=== PATIENT | female | born 1995 | race Caucasian/White ===

== ENCOUNTER 2020-09-15 19:25 | Emergency (ER) | payer BC, OTHER ==
[~2020-09-15] VITALS: Ht 162.6 cm; Wt 110.2 kg
[2020-09-15 20:01] VITALS: BP 124/62
--- NOTE | 2020-09-15 20:04 | NUR ---
provided urine, triaged and waiting in lobby.
--- NOTE | 2020-09-15 20:45 | NUR ---
To ED bed 12
--- NOTE | 2020-09-15 20:47 | NUR ---
25 year old female coming in for c/o pelvic pain x 3-4 days. pt states negative covid test x 1 month. reports pain as constant and aching 6/10 pain. states just found out she was last . LMP 08/15/20. G3 T2 L2. denies n/v/d. denies bloody discharge. denies sob/chest pain. a/o x 4. Respirations even and unlabored. RRR. abdomen soft and nontender. no rebound tenderness. denies dysuria. pmhx: denies nkda
[2020-09-15] MEDS ORDERED: ACETAMINOPHEN EXTRA STRENGTH 500 MG TAB PO ONE (21:30)
[2020-09-15] MEDS ORDERED: ONDANSETRON 4 MG ODT PO ONE (21:30)
--- NOTE | 2020-09-15 21:37 | NUR ---
ultrasound at bedside.
--- NOTE | 2020-09-15 21:40 | NUR ---
urine sample collected and handed to lab
--- NOTE | 2020-09-15 21:40 | NUR ---
Per Cathleen, [employer] - delay in drawing Pt labs due to Ultrasound at bedside at this time.
[2020-09-15 21:53] LABS: APPEARANCE,URINE CLOUDY (CLEAR); BILIRUBIN,URINE NEGATIVE (NEGATIVE); BLOOD, URINE NEGATIVE (NEGATIVE); COLOR,URINE YELLOW (YELLOW); LEUKOCYTE ESTERASE ,URINE NEGATIVE (NEGATIVE); NITRITE, URINE POSITIVE (NEGATIVE); UGLUCOSE NEGATIVE (NEGATIVE)
[2020-09-15 22:14] LABS: BASOPHILS # (AUTO) 0.1 K/uL (0.00-0.22); BASOPHILS % (AUTO) 0.7 % (0.0-2.0); EOSINOPHILS # (AUTO) 0.5 K/uL (0-0.4); HEMATOCRIT 35.9 % (36-48); LYMPHOCYTES % (AUTO) 32.8 % (20.5-51.1); MEAN CORPUSCULAR HEMOGLOBIN 27 pg (27-31); MEAN CORPUSCULAR HGB CONC 33 g/dL (33-37); MEAN CORPUSCULAR VOLUME 81.6 fL (80-94); MONOCYTES # (AUTO) 0.6 K/uL (0.8-1.0); MONOCYTES % (AUTO) 6.7 % (1.7-9.3); NEUTROPHILS # (AUTO) 4.9 K/uL (1.8-7.7); NEUTROPHILS % (AUTO) 54.8 % (42.2-75.2); PLATELET COUNT (AUTO) 283 K/uL (140-450); RED CELL DISTRIBUTION WIDTH 15.2 % (11.6-13.7)
[2020-09-15 23:11] LABS: ALBUMIN 3.7 g/dL (3.4-5.0); ANION GAP 13.3 (8-16); CARBON DIOXIDE 25.2 mmol/L (21-32); CREATININE 0.6 mg/dL (0.6-1.3); POTASSIUM 3.5 mmol/L (3.5-5.1); TOTAL BILIRUBIN 0.2 mg/dL (0.0-1.0)
[2020-09-15 23:44] VITALS: BP 131/69
--- NOTE | 2020-09-15 23:44 | NUR ---
Patient discharged with v/s stable. Written and verbal after care instructions given and explained. Patient verbalized understanding. Ambulatory with steady gait. All questions addressed prior to discharge. Advised to follow up with PMD.
== END 2020-09-15 23:44 | disposition home or self-care (01) ==
LOC: MED 19:25
DX: O21.8 Other vomiting complicating pregnancy (principal); O26.899 Other specified pregnancy related conditions, unspecified trimester; O99.210 Obesity complicating pregnancy, unspecified trimester; R10.2 Pelvic and perineal pain; Z98.890 Other specified postprocedural states; Z68.41 Body mass index [BMI] 40.0-44.9, adult
CPT/HCPCS: 36415; 76817; 80053; 81003; 84702; 85025; 99284; Q0162

== ENCOUNTER 2020-11-09 21:52 | Emergency (ER) | payer BC, OTHER ==
[~2020-11-09] VITALS: Ht 160 cm; Wt 108.9 kg
[2020-11-09 21:59] VITALS: BP 116/55
--- NOTE | 2020-11-09 21:59 | NUR ---
TO BED AMBULATORY
--- NOTE | 2020-11-09 22:06 | NUR ---
William cross in ED - 11/09/20 at 2233 by [facility] AMBULATED TO ER BED 3
--- NOTE | 2020-11-09 22:16 | NUR ---
A1 25 y/o female presented to ED c/o vaginal bleeding x 1 week. Pt states she had an in September , pt was provided oral medication for but is unsure the name of medication. Pt states she took a test last week and it came out positive and is worried she is again. Pt c/o of pelvic cramping that radiates to lower back , rates pain 5/10 , states pain gets worse upon urination. Pt bleeding is controlled. Abd round , soft and nontender upon palpation. Active bowel sounds. Pt provided gown and sheet . VSS. Pt resting in bed, locked and in lowest position, side rail x1. No acute distress noted. ERMD made aware of pt status. pmh: denies NKA
--- NOTE | 2020-11-09 22:23 | NUR ---
ERMD at bedside for medical evaluation.
[2020-11-09 22:24] LABS: BASOPHILS % (AUTO) 0.6 % (0.0-2.0); EOSINOPHILS # (AUTO) 0.3 K/uL (0-0.4); EOSINOPHILS % (AUTO) 3.9 % (0.0-4.0); HEMATOCRIT 36.1 % (36-48); HEMOGLOBIN 11.7 g/dL (12.0-16.0); LYMPHOCYTES # (AUTO) 2.4 K/uL (2.5-16.5); LYMPHOCYTES % (AUTO) 28.3 % (20.5-51.1); MEAN CORPUSCULAR HEMOGLOBIN 27 pg (27-31); MEAN CORPUSCULAR HGB CONC 33 g/dL (33-37); MEAN CORPUSCULAR VOLUME 81.8 fL (80-94); MONOCYTES # (AUTO) 0.4 K/uL (0.8-1.0); MONOCYTES % (AUTO) 5.1 % (1.7-9.3); NEUTROPHILS # (AUTO) 5.3 K/uL (1.8-7.7); NEUTROPHILS % (AUTO) 62.1 % (42.2-75.2); PLATELET COUNT (AUTO) 290 K/uL (140-450); RED BLOOD CELL COUNT(AUTO) 4.41 MIL/uL (4.20-5.40); RED CELL DISTRIBUTION WIDTH 14.3 % (11.6-13.7); WHITE BLOOD COUNT (AUTO) 8.6 K/uL (4.8-10.8)
[2020-11-09 22:25] LABS: APPEARANCE,URINE CLOUDY (CLEAR); BILIRUBIN,URINE 1+ (NEGATIVE); BLOOD, URINE 3+ (NEGATIVE); LEUKOCYTE ESTERASE ,URINE TRACE (NEGATIVE); NITRITE, URINE POSITIVE (NEGATIVE); UGLUCOSE NEGATIVE (NEGATIVE)
--- NOTE | 2020-11-09 22:25 | NUR ---
Pt hcg test came back negative. Per Dr. Angelique namcel ultrasound and labs. Pt will be discharged.
[2020-11-09 22:28] VITALS: BP 116/55
--- NOTE | 2020-11-09 22:28 | NUR ---
Patient discharged by Dr. Merino with v/s stable. Written and verbal after care instructions given and explained. Patient verbalized understanding. Ambulatory with steady gait. All questions addressed prior to discharge. Advised to follow up with PMD.
[2020-11-09 22:35] LABS: COLOR,URINE SLIGHT BLOODY (YELLOW)
[2020-11-09 22:38] LABS: RBC,URINE >100 /HPF (0-5)
[2020-11-09 22:41] LABS: ALBUMIN 3.6 g/dL (3.4-5.0); ANION GAP 9.5 (8-16); CARBON DIOXIDE 27.5 mmol/L (21-32); CREATININE 0.7 mg/dL (0.6-1.3); TOTAL BILIRUBIN 0.2 mg/dL (0.0-1.0)
== END 2020-11-09 22:28 | disposition home or self-care (01) ==
LOC: MED 21:52
DX: N92.0 Excessive and frequent menstruation with regular cycle (principal)
CPT/HCPCS: 36415; 80053; 81001; 81025; 84702; 85025; 86900; 86901; 87086; 99284